=== PATIENT | female | born 1940 | race Caucasian/White ===

== ENCOUNTER 2024-11-26 17:08 | Inpatient (IN) | payer MEDICARE ==
[~2024-11-26] VITALS: Ht 157.4 cm; Wt 89.0 kg
[2024-11-26] MEDS ORDERED: PACERONE200 MG PO (20:36)
[2024-11-26] MEDS ORDERED: ASPIRIN ADULT L81 M2 PO (20:37)
[2024-11-26] MEDS ORDERED: LIPITOR40 MG PO (20:37)
[2024-11-26] MEDS ORDERED: AZO CRANBERRY1 EACH PO (20:38)
[2024-11-26] MEDS ORDERED: CLARITIN10 MG PO (20:39)
[2024-11-26] MEDS ORDERED: BENADRYL ALLERG25 M5 PO (20:39)
[2024-11-26] MEDS ORDERED: B-121000 MCG PO (20:40)
[2024-11-26] MEDS ORDERED: EXELON1 EACH T (20:41)
[2024-11-26] MEDS ORDERED: 24 HOUR ALLERG9.9 ML NAS (20:43)
[2024-11-26] MEDS ORDERED: MOTRIN IB200 M1 PO (20:44)
[2024-11-26] MEDS ORDERED: Ipratropium Brom3 ML INH (20:46)
[2024-11-26] MEDS ORDERED: ISORDIL10 M1 PO (20:47)
[2024-11-26] MEDS ORDERED: MULTI-VITAMIN1 EACH PO (20:48)
[2024-11-26] MEDS ORDERED: VENT7GM INH (20:51)
[2024-11-26] MEDS ORDERED: SENNA-PLUS TAB1 EACH PO (20:52)
[2024-11-26] MEDS ORDERED: SYNTHROID,LEVO75 MCG PO (20:53)
[2024-11-26] MEDS ORDERED: VITAMIN D3125 MCG PO (20:56)
[2024-11-26] MEDS ORDERED: STIOLTO RESPIMAT4 G1 INH (20:58)
[2024-11-26] MEDS ORDERED: Ondansetron4 MG PO (20:59)
[2024-11-26] MEDS ORDERED: ZOLOFT100 MG PO (20:59)
[2024-11-26] MEDS ORDERED: MG-AL HYDROXIDE/SIMETICONE 30 ML UDC PO PRN (21:15)
[2024-11-26] MEDS ORDERED: ACETAMINOPHEN 325 MG TAB PO PRN (21:15)
[2024-11-26] MEDS ORDERED: Magnesium Hydroxide 30 ML UDC PO PRN (21:15)
[2024-11-26] MEDS ORDERED: LORazepam 1 MG TAB PO PRN (21:30)
[2024-11-26] MEDS ORDERED: Menthol/Zinc Oxide 4 GM THIN T PRN (21:30)
[2024-11-26] MEDS ORDERED: Ziprasidone Mesylate 20 MG VIAL IM PRN (21:35)
[2024-11-26] MEDS ORDERED: hydrOXYzine hydrochloride 50 MG/ML VIAL IM PRN (21:35)
[2024-11-26] MEDS ORDERED: Water, Sterile 10 ML VIAL IM PRN (21:35)
[2024-11-26] MEDS ORDERED: Ondansetron Hydrochloride 4 MG TAB PO PRN (22:00)
[2024-11-26] MEDS ORDERED: Albuterol Sulf/Ipratropium 3 ML VIAL NEB PRN (22:00)
[2024-11-26] MEDS ORDERED: Docusate Sodium/Senna 1 TAB TAB PO PRN (22:00)
[2024-11-26] MEDS ORDERED: Albuterol Sulfate 2.5 MG/3 ML VIAL NEB PRN (22:00)
[2024-11-26 23:15] VITALS: BP 165/59
[2024-11-27 04:33] LABS: BILIRUBIN Negative (Negative); BLOOD 1+ (Negative); CLARITY Clear (Clear); COLOR Yellow (Yellow); GLUCOSE Negative (Negative); KETONE 1+ (Negative); LEUKO ESTERASE 1+ (Negative); NITRITE Negative (Negative); SPECIFIC GRAVITY 1.015 (1.001-1.030); UROBILINOGEN 0.2 E.U./dl (0.0-1.0)
[2024-11-27 04:44] LABS: BACTERIA 3+
[2024-11-27 04:45] LABS: RBC 16-20 rbc/hpf (0-2); WBC 21-30 wbc/hpf (0-5)
[2024-11-27] MEDS ORDERED: Levothyroxine Sodium 50 MCG TAB PO SCH (06:00)
[2024-11-27 06:28] LABS: HEMATOCRIT 36.3 % (37.0-47.0); MEAN CELL VOLUME 95.8 fl (81.0-99.0); MEAN CORPUSCULAR HGB 30.3 pg (27.0-31.0); MEAN CORPUSCULAR HGB CONC 31.7 g/dl (33.0-37.0); MEAN PLATELET VOLUME 13.6 fl (9.6-12.3); PLATELET COUNT AUTOMATED 154 10*3/uL (130-400); RED BLOOD COUNT 3.79 10*6/uL (4.10-5.10); RED CELL DISTRI WIDTH 14.6 % (0-14.5); WHITE BLOOD COUNT 9.1 10*3/uL (4.8-10.8)
[2024-11-27 07:17] LABS: MANUAL DIFF REFLEX YES
[2024-11-27 07:19] LABS: BASOPHILS 1 % (0-1); PLATELET SUFFICIENCY NORMAL (NORMAL); POLYCHROMASIA SLIGHT; ROULEAUX SLIGHT; TOTAL CELLS COUNTED 100 #CELLS
[2024-11-27 07:21] LABS: ALKALINE PHOSPHATASE 110 U/L (46-116); BUN 10 mg/dl (9-23); CHLORIDE 103 mmol/L (98-107); CHOLESTEROL 134 mg/dL (<200); LDL CHOLESTEROL 65 mg/dL (9-159); SGPT/ALT 39 U/L (5-49); TOTAL PROTEIN 6.7 gm/dL (6.0-8.0); TRIGLYCERIDES 74 mg/dl (<150)
[2024-11-27 08:00] VITALS: BP 152/61
[2024-11-27 08:35] LABS: VITAMIN D, 25-HYDROXY 40.2 ng/mL (30-100)
[2024-11-27] MEDS ORDERED: ARIPiprazole 5 MG TAB PO SCH (09:00)
[2024-11-27] MEDS ORDERED: ATORVASTATIN CALCIUM 40 MG TABLET PO SCH (09:00)
[2024-11-27] MEDS ORDERED: CYANOCOBALAMIN 500 MCG TAB PO SCH (09:00)
[2024-11-27] MEDS ORDERED: Sertraline Hydrochloride 50 MG TAB PO SCH (09:00)
[2024-11-27] MEDS ORDERED: Amiodarone Hydrochloride 200 MG TAB PO SCH (09:00)
[2024-11-27] MEDS ORDERED: ASPIRIN ENTERIC COATED 81 MG TAB PO SCH (09:00)
[2024-11-27] MEDS ORDERED: ISOSORBIDE DINITRATE 10 MG TAB PO SCH (09:00)
[2024-11-27] MEDS ORDERED: CEFDINIR 300 MG CAP PO SCH (12:26)
[2024-11-27 20:00] VITALS: BP 154/58
[2024-11-28 08:05] VITALS: BP 152/70
[2024-11-28] MEDS ORDERED: Sertraline Hydrochloride 50 MG TAB PO SCH (09:00)
[2024-11-28] MEDS ORDERED: predniSONE 20 MG TAB PO SCH ×2 (10:00→10:07)
[2024-11-28] MEDS ORDERED: SODIUM CHLORIDE Nasal 44 ml bottle NAS PRN (10:30)
[2024-11-28] MEDS ORDERED: Albuterol Sulf/Ipratropium 3 ML VIAL NEB SCH (12:00)
[2024-11-28] MEDS ORDERED: FUROSEMIDE 40 MG TAB PO SCH (13:05)
[2024-11-28] MEDS ORDERED: FUROSEMIDE 20 MG TAB PO ONE (13:15)
[2024-11-28 20:00] VITALS: BP 144/72
[2024-11-28] MEDS ORDERED: GUAIFENESIN 600 MG TAB ER PO SCH (21:00)
[2024-11-28] MEDS ORDERED: CEFDINIR 300 MG CAP PO SCH (21:00)
[2024-11-29 06:25] LABS: HEMATOCRIT 34.1 % (37.0-47.0); MEAN CELL VOLUME 94.7 fl (81.0-99.0); MEAN CORPUSCULAR HGB 30.6 pg (27.0-31.0); MEAN CORPUSCULAR HGB CONC 32.3 g/dl (33.0-37.0); MEAN PLATELET VOLUME 13.6 fl (9.6-12.3); PLATELET COUNT AUTOMATED 157 10*3/uL (130-400); RED CELL DISTRI WIDTH 14.6 % (0-14.5); WHITE BLOOD COUNT 7.1 10*3/uL (4.8-10.8)
[2024-11-29 06:35] LABS: POTASSIUM 3.9 mmol/L (3.4-5.1)
[2024-11-29 07:35] LABS: MANUAL DIFF REFLEX YES
[2024-11-29 07:38] LABS: TOTAL CELLS COUNTED 100 #CELLS
[2024-11-29 07:39] LABS: PLATELET SUFFICIENCY NORMAL (NORMAL)
[2024-11-29 08:00] VITALS: BP 145/54
[2024-11-29 20:00] VITALS: BP 151/64
[2024-11-30 08:00] VITALS: BP 151/56
[2024-11-30] MEDS ORDERED: Sertraline Hydrochloride 50 MG TAB PO SCH (09:00)
[2024-11-30] MEDS ORDERED: Rivastigmine Tartrate 4.6 MG/24 HR PATCH T SCH (10:05)
[2024-11-30 20:00] VITALS: BP 148/55
[2024-11-30] MEDS ORDERED: risperiDONE 0.5 MG TAB PO SCH (21:00)
[2024-12-01 06:40] LABS: POTASSIUM 3.7 mmol/L (3.4-5.1)
[2024-12-01 08:23] VITALS: BP 153/69
[2024-12-01] MEDS ORDERED: ZINC SULFATE 220 MG TAB PO SCH (09:00)
[2024-12-01] MEDS ORDERED: predniSONE 20 MG TAB PO SCH (10:00)
[2024-12-01 20:00] VITALS: BP 152/64
[2024-12-01] MEDS ORDERED: Memantine Hydrochloride 5 MG TAB PO SCH (21:00)
[2024-12-02 08:00] VITALS: BP 145/65
[2024-12-02 20:00] VITALS: BP 143/67
[2024-12-02] MEDS ORDERED: Memantine Hydrochloride 5 MG TAB PO SCH (21:00)
[2024-12-03 07:44] LABS: POTASSIUM 3.6 mmol/L (3.4-5.1)
[2024-12-03 08:00] VITALS: BP 151/61
[2024-12-03] MEDS ORDERED: Rivastigmine Tartrate 9.5 MG/24 HR PATCH T SCH (09:00)
[2024-12-03 20:00] VITALS: BP 149/60
[2024-12-04 06:37] LABS: HEMATOCRIT 35.4 % (37.0-47.0); MEAN CELL VOLUME 97.8 fl (81.0-99.0); MEAN CORPUSCULAR HGB 30.1 pg (27.0-31.0); MEAN CORPUSCULAR HGB CONC 30.8 g/dl (33.0-37.0); MEAN PLATELET VOLUME 12.9 fl (9.6-12.3); PLATELET COUNT AUTOMATED 177 10*3/uL (130-400); RED BLOOD COUNT 3.62 10*6/uL (4.10-5.10); RED CELL DISTRI WIDTH 14.6 % (0-14.5); WHITE BLOOD COUNT 5.8 10*3/uL (4.8-10.8)
[2024-12-04 06:40] LABS: MANUAL DIFF REFLEX YES
[2024-12-04 06:57] LABS: POTASSIUM 3.8 mmol/L (3.4-5.1); TOTAL PROTEIN 5.8 gm/dL (6.0-8.0)
[2024-12-04 07:40] LABS: OVALOCYTES FEW; POLYCHROMASIA SLIGHT; TOTAL CELLS COUNTED 100 #CELLS
[2024-12-04 07:41] LABS: PLATELET SUFFICIENCY NORMAL (NORMAL)
[2024-12-04 08:00] VITALS: BP 149/84
[2024-12-04] MEDS ORDERED: predniSONE 20 MG TAB PO SCH (10:00)
[2024-12-04 20:00] VITALS: BP 146/53
[2024-12-05 08:23] VITALS: BP 125/46
[2024-12-05] MEDS ORDERED: Ondansetron Hydrochloride 4 MG TAB PO PRN (10:10)
[2024-12-05] MEDS ORDERED: Ondansetron Hydrochloride 4 MG TAB SL PRN (10:10)
[2024-12-05 20:00] VITALS: BP 138/72
[2024-12-05] MEDS ORDERED: Memantine Hydrochloride 10 MG TAB PO SCH (21:00)
[2024-12-06 08:00] VITALS: BP 137/62
[2024-12-06] MEDS ORDERED: RIVASTIGMINE 13.3 MG/24 HR TDM T SCH (09:00)
[2024-12-06] MEDS ORDERED: Memantine Hydrochloride 5 MG TAB PO SCH (09:00)
[2024-12-06 10:33] LABS: BASO % 0.1 % (0.0-1.0); EOS # 0.1 10*3/uL (0.0-0.4); HEMATOCRIT 40.7 % (37.0-47.0); MEAN CELL VOLUME 97.6 fl (81.0-99.0); MEAN CORPUSCULAR HGB 30.7 pg (27.0-31.0); MEAN CORPUSCULAR HGB CONC 31.4 g/dl (33.0-37.0); MONO # 0.9 10*3/uL (0.1-1.0); MONO % 10.3 % (3.0-9.0); NEUT # 6.6 10*3/uL (2.3-7.9); NEUT % 76.4 % (47.0-73.0); PLATELET COUNT AUTOMATED 222 10*3/uL (130-400); RED BLOOD COUNT 4.17 10*6/uL (4.10-5.10); RED CELL DISTRI WIDTH 14.7 % (0-14.5); WHITE BLOOD COUNT 8.7 10*3/uL (4.8-10.8)
[2024-12-06 10:55] LABS: POTASSIUM 3.4 mmol/L (3.4-5.1); TOTAL PROTEIN 6.5 gm/dL (6.0-8.0)
[2024-12-06 20:00] VITALS: BP 158/65
[2024-12-07] MEDS ORDERED: ZINC SULFATE50 MG PO (07:53)
[2024-12-07] MEDS ORDERED: NAMENDA-5 PO (07:53)
[2024-12-07] MEDS ORDERED: RIVASTIGMINE1 EAC2 T (07:53)
[2024-12-07] MEDS ORDERED: MEMANTINE HCL10 MG PO (07:53)
[2024-12-07] MEDS ORDERED: RISPERIDONE0.5 MG PO (07:53)
[2024-12-07 08:00] VITALS: BP 144/50
[2024-12-07] MEDS ORDERED: predniSONE 20 MG TAB PO SCH (10:00)
== END 2024-12-07 09:30 | DRG 885 ==
LOC: 3N 17:08
PROVIDERS: Counselor Professional; Internal Medicine; Registered Nurse; ADMIT Psychiatry & Neurology Psychiatry; ATTEND Psychiatry & Neurology Psychiatry
PROC: GZHZZZZ Group Psychotherapy (ICD-10-PCS; principal; 2024-11-27)
PROC: GZ51ZZZ Individual Psychotherapy, Behavioral (ICD-10-PCS; 2024-11-27)
DX: F25.0 Schizoaffective disorder, bipolar type (principal); I11.0 Hypertensive heart disease with heart failure; I50.33 Acute on chronic diastolic (congestive) heart failure; J96.11 Chronic respiratory failure with hypoxia; J44.1 Chronic obstructive pulmonary disease with (acute) exacerbation; F02.82 Dementia in other diseases classified elsewhere, unspecified severity, with psychotic disturbance; N30.01 Acute cystitis with hematuria; F25.9 Schizoaffective disorder, unspecified; J44.9 Chronic obstructive pulmonary disease, unspecified; G30.9 Alzheimer's disease, unspecified; E03.9 Hypothyroidism, unspecified; I25.10 Atherosclerotic heart disease of native coronary artery without angina pectoris; Z88.1 Allergy status to other antibiotic agents; Z88.8 Allergy status to other drugs, medicaments and biological substances; Z88.2 Allergy status to sulfonamides; Z79.899 Other long term (current) drug therapy; Z79.82 Long term (current) use of aspirin; Z79.51 Long term (current) use of inhaled steroids

== ENCOUNTER 2025-01-12 16:28 | Inpatient (IN) | payer MEDICARE, MEDICAID ==
[~2025-01-12] VITALS: Ht 160 cm; Wt 111.6 kg
[~2025-01-12 16:28] MED LIST: 24 HOUR ALLERG9.9 ML NAS; ASPIRIN ADULT L81 M2 PO; AZO CRANBERRY1 EACH PO; B-121000 MCG PO; BENADRYL ALLERG25 M5 PO; CLARITIN10 MG PO; EXELON1 EACH T; ISORDIL10 M1 PO; Ipratropium Brom3 ML INH; LIPITOR40 MG PO; MEMANTINE HCL10 MG PO; MOTRIN IB200 M1 PO; MULTI-VITAMIN1 EACH PO; NAMENDA-5 PO; Ondansetron4 MG PO; PACERONE200 MG PO; RISPERIDONE0.5 MG PO; RIVASTIGMINE1 EAC2 T; SENNA-PLUS TAB1 EACH PO; STIOLTO RESPIMAT4 G1 INH; SYNTHROID,LEVO75 MCG PO; VENT7GM INH; VITAMIN D3125 MCG PO; ZINC SULFATE50 MG PO; ZOLOFT100 MG PO
[2025-01-12] MEDS ORDERED: NORVASC2.5 MG PO (18:27)
[2025-01-12] MEDS ORDERED: ARTIFICIAL TEAR1514 OP (18:29)
[2025-01-12] MEDS ORDERED: CIPROFLOXACIN250 MG PO (18:32)
[2025-01-12] MEDS ORDERED: FEXOFENADINE H180 M1 PO (18:33)
[2025-01-12] MEDS ORDERED: GABARONE100 M1 PO (18:34)
[2025-01-12] MEDS ORDERED: LIDODERM1 EACH T (18:36)
[2025-01-12] MEDS ORDERED: MEMANTINE HCL10 MG PO (18:38)
[2025-01-12] MEDS ORDERED: PROBIOTIC250 MG PO (18:38)
[2025-01-12] MEDS ORDERED: Ziprasidone Mesylate 20 MG VIAL IM PRN (18:50)
[2025-01-12] MEDS ORDERED: SODIUM CHLORIDE Nasal 44 ml bottle NAS PRN (18:50)
[2025-01-12] MEDS ORDERED: LORazepam 1 MG TAB PO PRN (18:50)
[2025-01-12] MEDS ORDERED: hydrOXYzine hydrochloride 50 MG/ML VIAL IM PRN (18:50)
[2025-01-12] MEDS ORDERED: MG-AL HYDROXIDE/SIMETICONE 30 ML UDC PO PRN (21:05)
[2025-01-12] MEDS ORDERED: Magnesium Hydroxide 30 ML UDC PO PRN (21:05)
[2025-01-12] MEDS ORDERED: ACETAMINOPHEN 325 MG TAB PO PRN (21:05)
[2025-01-12] MEDS ORDERED: Menthol/Zinc Oxide 4 GM THIN T PRN (21:05)
[2025-01-12 21:46] VITALS: BP 152/74
[2025-01-13] MEDS ORDERED: Albuterol Sulfate 2.5 MG/3 ML VIAL NEB PRN (01:45)
[2025-01-13] MEDS ORDERED: GABAPENTIN 100 MG CAP PO SCH (06:00)
[2025-01-13] MEDS ORDERED: Levothyroxine Sodium 150 MCG TAB PO SCH (06:00)
[2025-01-13 07:14] LABS: BASO % 0.2 % (0.0-1.0); EOS # 0.3 10*3/uL (0.0-0.4); HEMATOCRIT 33.6 % (37.0-47.0); MEAN CELL VOLUME 93.6 fl (81.0-99.0); MEAN CORPUSCULAR HGB 30.1 pg (27.0-31.0); MEAN CORPUSCULAR HGB CONC 32.1 g/dl (33.0-37.0); MEAN PLATELET VOLUME 10.7 fl (9.6-12.3); MONO # 0.6 10*3/uL (0.1-1.0); MONO % 9.9 % (3.0-9.0); NEUT # 4.3 10*3/uL (2.3-7.9); NEUT % 70.4 % (47.0-73.0); PLATELET COUNT AUTOMATED 156 10*3/uL (130-400); RED BLOOD COUNT 3.59 10*6/uL (4.10-5.10); RED CELL DISTRI WIDTH 14.3 % (0-14.5)
[2025-01-13] MEDS ORDERED: FUROSEMIDE 40 MG TAB PO SCH (07:30)
[2025-01-13 07:53] LABS: ALKALINE PHOSPHATASE 97 U/L (46-116); BUN 12 mg/dl (9-23); CHLORIDE 100 mmol/L (98-107); CHOLESTEROL 130 mg/dL (<200); LDL CHOLESTEROL 65 mg/dL (9-159); POTASSIUM 3.9 mmol/L (3.4-5.1); SGPT/ALT 16 U/L (5-49); TRIGLYCERIDES 79 mg/dl (<150)
[2025-01-13 08:23] VITALS: BP 150/55
[2025-01-13] MEDS ORDERED: ATORVASTATIN CALCIUM 40 MG TABLET PO SCH (09:00)
[2025-01-13] MEDS ORDERED: ISOSORBIDE DINITRATE 10 MG TAB PO SCH (09:00)
[2025-01-13] MEDS ORDERED: Amiodarone Hydrochloride 200 MG TAB PO SCH (09:00)
[2025-01-13] MEDS ORDERED: amLODIPine besylate 2.5 MG TAB PO SCH (09:00)
[2025-01-13] MEDS ORDERED: ZINC SULFATE 220 MG TAB PO SCH (09:00)
[2025-01-13] MEDS ORDERED: ASPIRIN ENTERIC COATED 81 MG TAB PO SCH (09:00)
[2025-01-13] MEDS ORDERED: RIVASTIGMINE 13.3 MG/24 HR TDM T SCH (09:00)
[2025-01-13] MEDS ORDERED: CYANOCOBALAMIN 500 MCG TAB PO SCH (09:00)
[2025-01-13] MEDS ORDERED: LORATADINE 10 MG TAB PO SCH (09:00)
[2025-01-13] MEDS ORDERED: Cholecalciferol 5,000 IU CAP (125 MCG) PO SCH (09:00)
[2025-01-13] MEDS ORDERED: MULTIVITAMIN 1 TAB TAB PO SCH (09:00)
[2025-01-13] MEDS ORDERED: FLUTICASONE PROPIONATE Nasal 16 Gm spray NAS SCH (10:00)
[2025-01-13] MEDS ORDERED: STIOLTO RESPIMAT INH SCH (10:00)
[2025-01-13] MEDS ORDERED: Memantine Hydrochloride 10 MG TAB PO SCH (10:00)
[2025-01-13 20:00] VITALS: BP 140/50
[2025-01-13] MEDS ORDERED: clonAZEPAM 0.5 MG TAB PO SCH (21:00)
[2025-01-13] MEDS ORDERED: DULoxetine Hydrochloride 30 MG CAP PO SCH (21:00)
[2025-01-14 08:00] VITALS: BP 150/53
[2025-01-14] MEDS ORDERED: DULoxetine Hydrochloride 30 MG CAP PO SCH (09:00)
[2025-01-14 20:00] VITALS: BP 131/54
[2025-01-14 20:23] LABS: BILIRUBIN Negative (Negative); BLOOD Negative (Negative); CLARITY Clear (Clear); COLOR Yellow (Yellow); GLUCOSE Negative (Negative); KETONE Negative (Negative); LEUKO ESTERASE 2+ (Negative); NITRITE Negative (Negative); SPECIFIC GRAVITY 1.015 (1.001-1.030); UROBILINOGEN 0.2 E.U./dl (0.0-1.0)
[2025-01-14 20:44] LABS: EPITHELIAL CELLS 0-2; WBC 21-30 wbc/hpf (0-5)
[2025-01-14 20:45] LABS: BACTERIA 2+; RBC 0-2 rbc/hpf (0-2)
[2025-01-15 08:00] VITALS: BP 140/58
[2025-01-15] MEDS ORDERED: LISINOPRIL 5 MG TAB PO SCH (18:00)
[2025-01-15 20:00] VITALS: BP 128/52
[2025-01-16 08:13] VITALS: BP 154/93
[2025-01-16 20:00] VITALS: BP 132/60
[2025-01-16] MEDS ORDERED: Benzocaine/Menthol 1 LOZ LOZENGE PO PRN (23:50)
[2025-01-17 07:30] LABS: BUN 30 mg/dl (9-23); CHLORIDE 96 mmol/L (98-107)
[2025-01-17 08:00] VITALS: BP 137/48
[2025-01-17 20:00] VITALS: BP 127/41
[2025-01-18 06:34] LABS: BUN 29 mg/dl (9-23); CHLORIDE 96 mmol/L (98-107); POTASSIUM 3.9 mmol/L (3.4-5.1)
[2025-01-18 08:00] VITALS: BP 120/51
[2025-01-18] MEDS ORDERED: DULOXETINE HCL30 MG PO (09:35)
[2025-01-18] MEDS ORDERED: MEMANTINE HCL10 MG PO (09:35)
[2025-01-18] MEDS ORDERED: CLONAZEPAM0.5 M2 PO (09:35)
[2025-01-18] MEDS ORDERED: LISINOPRIL5 MG PO (10:33)
[2025-01-18] MEDS ORDERED: FUROSEMIDE40 MG PO (10:33)
== END 2025-01-18 11:50 | DRG 885 ==
LOC: 3N 16:28
PROVIDERS: Family Medicine; ADMIT Psychiatry & Neurology Psychiatry; ATTEND Psychiatry & Neurology Psychiatry
PROC: GZHZZZZ Group Psychotherapy (ICD-10-PCS; principal; 2025-01-13)
PROC: GZ51ZZZ Individual Psychotherapy, Behavioral (ICD-10-PCS; 2025-01-13)
DX: F33.2 Major depressive disorder, recurrent severe without psychotic features (principal); E11.65 Type 2 diabetes mellitus with hyperglycemia; I50.23 Acute on chronic systolic (congestive) heart failure; E44.0 Moderate protein-calorie malnutrition; F02.83 Dementia in other diseases classified elsewhere, unspecified severity, with mood disturbance; G30.9 Alzheimer's disease, unspecified; I25.10 Atherosclerotic heart disease of native coronary artery without angina pectoris; K21.9 Gastro-esophageal reflux disease without esophagitis; F25.9 Schizoaffective disorder, unspecified; F43.23 Adjustment disorder with mixed anxiety and depressed mood; F41.0 Panic disorder [episodic paroxysmal anxiety]; E78.5 Hyperlipidemia, unspecified; J44.9 Chronic obstructive pulmonary disease, unspecified; D64.9 Anemia, unspecified; Z88.1 Allergy status to other antibiotic agents; Z88.2 Allergy status to sulfonamides; Z88.8 Allergy status to other drugs, medicaments and biological substances; Z86.718 Personal history of other venous thrombosis and embolism; I25.2 Old myocardial infarction; Z95.0 Presence of cardiac pacemaker

== ENCOUNTER 2025-01-12 16:53 | Emergency (ER) | payer MEDICARE, MEDICAID ==
[~2025-01-12] VITALS: Wt 93.4 kg
[2025-01-12 17:43] LABS: BASO % 0.2 % (0.0-1.0); EOS # 0.4 10*3/uL (0.0-0.4); EOS % 5.3 % (1.0-4.0); HEMATOCRIT 38.1 % (37.0-47.0); MEAN CELL VOLUME 95.5 fl (81.0-99.0); MEAN CORPUSCULAR HGB 30.6 pg (27.0-31.0); MEAN PLATELET VOLUME 10.6 fl (9.6-12.3); MONO # 0.8 10*3/uL (0.1-1.0); MONO % 11.7 % (3.0-9.0); NEUT # 4.6 10*3/uL (2.3-7.9); NEUT % 69.7 % (47.0-73.0); PLATELET COUNT AUTOMATED 188 10*3/uL (130-400); RED BLOOD COUNT 3.99 10*6/uL (4.10-5.10); WHITE BLOOD COUNT 6.7 10*3/uL (4.8-10.8)
[2025-01-12 18:08] LABS: BUN 16 mg/dl (9-23); CHLORIDE 99 mmol/L (98-107); POTASSIUM 4.6 mmol/L (3.4-5.1)
[2025-01-12 18:17] LABS: ETHYL ALCOHOL < 3.0 mg/dl (<3)
[2025-01-12 18:25] LABS: BILIRUBIN Negative (Negative); BLOOD Negative (Negative); CLARITY Clear (Clear); COLOR Yellow (Yellow); GLUCOSE Negative (Negative); KETONE Negative (Negative); LEUKO ESTERASE Trace (Negative); NITRITE Negative (Negative); PH 6.5 (4.5-8.0); UROBILINOGEN 0.2 E.U./dl (0.0-1.0)
[2025-01-12] MEDS ORDERED: NORVASC2.5 MG PO (18:27)
[2025-01-12] MEDS ORDERED: ARTIFICIAL TEAR1514 OP (18:29)
[2025-01-12] MEDS ORDERED: CIPROFLOXACIN250 MG PO (18:32)
[2025-01-12] MEDS ORDERED: FEXOFENADINE H180 M1 PO (18:33)
[2025-01-12] MEDS ORDERED: GABARONE100 M1 PO (18:34)
[2025-01-12] MEDS ORDERED: LIDODERM1 EACH T (18:36)
[2025-01-12] MEDS ORDERED: MEMANTINE HCL10 MG PO (18:38)
[2025-01-12] MEDS ORDERED: PROBIOTIC250 MG PO (18:38)
[2025-01-12 18:53] LABS: BACTERIA TRACE; EPITHELIAL CELLS 0-2
[2025-01-12 19:03] LABS: URINE AMPHETAMINES Negative (1000ng/ml); URINE BARBITURATES Negative (200ng/ml); URINE BENZODIAZEPINES Negative (200ng/ml); URINE CANNABINOIDS (THC) Negative (50ng/ml); URINE COCAINE Negative (300ng/ml); URINE METHADONE Negative (300ng/ml); URINE OPIATES Negative (300ng/ml); URINE PHENCYCLIDINE Negative (25ng/ml)
== END 2025-01-12 21:00 ==
LOC: ED 16:53
PROVIDERS: Physician Assistant Medical
DX: F43.23 Adjustment disorder with mixed anxiety and depressed mood (principal); E11.9 Type 2 diabetes mellitus without complications; K21.9 Gastro-esophageal reflux disease without esophagitis; Z79.82 Long term (current) use of aspirin; Z79.899 Other long term (current) drug therapy; Z88.1 Allergy status to other antibiotic agents; Z88.6 Allergy status to analgesic agent